=== PATIENT | female | born 1960 | race Asian ===

== ENCOUNTER → 2018-06-22 08:11 | Outpatient (CLI) | payer OTHER, SELFPAY ==
--- NOTE | 2018-06-22 08:14 | BI_ITS ---
MAMMOGRAPHY - BILATERAL SCREENING REASON FOR EXAM: Female, 57 years old. Routine annual screening examination. PERTINENT HISTORY: Non-contributory. TECHNIQUE: Digital bilateral breast amol (3D mammographic acquisition) in the CC and MLO projections. 2-D mediolateral oblique (MLO) and craniocaudad (CC) views of both breasts were obtained. CAD: Full Field Digital Mammography with Computer Added Detection was performed. COMPARISON: Comparison is made with prior outside examination dated September 20, 2016. FINDINGS: Breast Composition: There are scattered areas of fibroglandular density. There are no dominant masses or suspicious calcifications. No other significant abnormalities are identified. There has been no significant change since the prior study. BI/SCREENING MAMM (CAD), BILAT IMPRESSION: Stable bilateral screening mammogram. Yearly follow-up mammogram recommended. (A) ASSESSMENT CATEGORY: BIRADS Category 1: Negative. A letter regarding these results will be sent to the patient by the facility within 30 days. Approximately 10% of breast cancers are not detected by mammography. A normal mammogram should not delay biopsy of a clinically suspicious abnormality. [id number] Electronically Signed: Prieto Martin MD at 12:57 EDT Tel [phone], Service support ,
== END ==
PROVIDERS: Family Provider Internal Medicine; PCP Internal Medicine; Visit Provider Internal Medicine
DX: Z12.31 Encounter for screening mammogram for malignant neoplasm of breast (principal)
CPT/HCPCS: 77063; 77067

== ENCOUNTER → 2018-09-10 18:51 | Outpatient (CLI) | payer OTHER, SELFPAY ==
[2018-09-10 09:54] VITALS: BMI 26.2
[2018-09-13 15:48] LABS: HPV APTIMA, High Risk Negative (Negative)
== END ==
PROVIDERS: Family Provider Internal Medicine; PCP Internal Medicine; Referring Provider Nurse Practitioner Women's Health; Visit Provider Nurse Practitioner Women's Health
DX: Z12.4 Encounter for screening for malignant neoplasm of cervix (principal)
CPT/HCPCS: 87624; 88175; G0145

== ENCOUNTER → 2021-05-13 09:47 | Outpatient (CLI) | payer OTHER, SELFPAY ==
--- NOTE | 2021-05-13 09:50 | RAD_ITS ---
STUDY: X-RAY - LEFT WRIST REASON FOR EXAM: Female, 60 years old. fall, left wrist pain TECHNIQUE: 3 view(s) of the wrist were obtained. COMPARISON: None. FINDINGS: Normal visualized distal radius and ulna. Normal radiocarpal articulation. Normal distal radioulnar articulation. Normal carpal bones. Normal carpal articulations. There is degenerative arthrosis of the carpometacarpal articulation of the thumb. Normal second through fifth carpometacarpal articulations. Normal visualized metacarpal bones. The soft tissue structures are unremarkable. RAD/Wrist min 3 Views IMPRESSION: No demonstrated fracture. Electronically Signed: Carlos Whyte MD ([facility]) at 15:21 EDT , Service support ,
== END ==
PROVIDERS: PCP Internal Medicine; Referring Provider Physician Assistant; Visit Provider Physician Assistant
DX: M25.532 Pain in left wrist (principal)
CPT/HCPCS: 73110

== ENCOUNTER → 2023-09-13 | Outpatient (CLI) | payer OTHER, SELFPAY ==
--- NOTE | 2023-09-13 16:32 | STRESSREP ---
Stress Test Report Exercise stress test. 63-year-old lady with a history of chest pain Stress protocol: Resting EKG demonstrates normal sinus rhythm with a rate of 69 bpm resting blood pressure is 142/84 mmHg. The patient exercised according to the regular [facility]ino protocol for a total duration of 6 minutes attaining a maximum heart rate of 157 bpm which was 100% of maximum predicted heart rate; the maximum workload was 7 metabolic equivalents. At rest there were no ST or T wave changes noted to suggest ischemia and at peak exercise upsloping ST changes only were noted which did not meet the criteria for ischemia. No clinical angina was noted the test was terminated due to the target heart rate being achieved/fatigue. The peak blood pressure was 198/110 mmHg. Rate-pressure product was 30,700. Conclusion: Stress test with no EKG criteria for ischemia No clinical angina noted
== END | disposition home or self-care (01) ==
LOC: CVS 09:55
PROVIDERS: PCP Internal Medicine; Referring Provider Nurse Practitioner; Visit Provider Nurse Practitioner
DX: R07.9 Chest pain, unspecified (principal)
CPT/HCPCS: 93017

== ENCOUNTER → 2024-06-10 | Outpatient (CLI) | payer OTHER, SELFPAY ==
[2024-06-10 15:47] LABS: Absolute Lymphocyte Count 1.64 X10^3/uL (0.83-4.51); Absolute Neutrophil Count 3.1 X10^3/uL (2.0-7.7); Basophil# 0.14 X10^3/uL; Basophil% 2.5 % (0-1); Eosinophil# 0.39 X10^3/uL; Eosinophils% 6.9 % (0-5); Hematocrit 49.9 % (37-47); Hemoglobin 15.9 g/dL (12.0-15.0); Lymphocyte # 1.64 X10^3/ul (0.83-4.51); Mean Corp Hgb Conc 31.9 g/dL (32-36); Mean Corpuscular Hgb 26.3 pg (27.0-32.0); Mean Corpuscular Volume 82.6 fL (81-99); Mean Platelet Vol. 9.5 fl (6.2-12.0); Monocyte# 0.37 X10^3/uL; Monocyte% 6.5 % (0-10); NRBC Flagged by Analyzer 0 % (0-5); Neutrophil # 3.09 X10^3/uL (2.7-7.7); Neutrophil % 54.7 % (47-70); Platelet Count 249 K/mm3 (150-450); RBC Distribution Width CV 12.9 % (11.6-14.6); RBC Distribution Width SD 38.5 fl (35.1-43.9); Red Blood Count 6.04 M/mm3 (4.2-5.4); White Blood Count 5.7 K/mm3 (4.4-11.0)
[2024-06-10 17:04] LABS: ALB/GLOB Ratio 0.9 RATIO (0.9-2.4); AST(SGOT) 18 U/L (15-37); Alanine Aminotransfer ALT/SGPT 21 U/L (13-56); Albumin, Serum 3.5 g/dL (3.2-5.0); Alkaline Phosphatase 96 U/L (45-117); Anion Gap 9 (5-15); BUN 14 mg/dL (7-18); BUN/Creat Ratio 19.7 RATIO (10-20); Calcium,Total 9.1 mg/dL (8.5-10.1); Chloride 107 mmol/L (98-107); Cholesterol 244 mg/dL (200); Creatinine, Serum 0.71 mg/dL (0.55-1.02); EST Glomerular Filtration Rate 88 mL/min (>60); Est Glom Filt Rate - Afr Amer 106 mL/min (>60); Glucose 103 mg/dL (74-106); High Density Lipoprotein 72 mg/dL; Potassium 3.9 mmol/L (3.5-5.1); Protein, Total 7.5 g/dL (6.4-8.2); Sodium Level 138 mmol/L (136-145); T4 Free Direct 1.04 ng/dL (0.76-1.46); Thyroid Stim Hormone (TSH) 0.743 uIU/mL (0.358-3.740); Triglycerides 284 mg/dL; Very Low Density Lipoprotein 57 mg/dL (5-40)
[2024-06-16 16:07] LABS: T3 Reverse 20.5 ng/dL (9.2-24.1)
== END | disposition home or self-care (01) ==
LOC: BIMLAB 14:13
PROVIDERS: PCP Internal Medicine; Referring Provider Internal Medicine; Visit Provider Internal Medicine
DX: Z00.00 Encounter for general adult medical examination without abnormal findings (principal); E04.9 Nontoxic goiter, unspecified
CPT/HCPCS: 36415; 80053; 80061; 84439; 84443; 84482; 85025

== ENCOUNTER → 2024-06-21 | Outpatient (CLI) | payer OTHER, SELFPAY ==
--- NOTE | 2024-06-21 07:55 | US_ITS ---
EXAM: US SOFT TISSUES HEAD AND NECK, THYROID CLINICAL INDICATION: Goiter TECHNIQUE: Greyscale and color doppler imaging was performed of the thyroid gland. COMPARISON: No relevant prior studies available. FINDINGS: LEFT THYROID LOBE: The left thyroid lobe measures 3.8 x 3.4 x 3.7 cm. There is a 3.3 cm left upper pole thyroid nodule. This nodule is solid or almost completely solid, hyperechoic or isoechoic, [id number], smoothly marginated and contains no echogenic foci. TI-RADS points: 3. TI-RADS category: TR3. This nodule is mildly suspicious. Recommend FNA evaluation. There is a 2.7 cm left upper pole thyroid nodule. This nodule is solid or almost completely solid, hyperechoic or isoechoic, [id number], smoothly marginated and contains no echogenic foci. TI-RADS points: 3. TI-RADS category: TR3. This nodule is mildly suspicious. Recommend FNA evaluation. There is a 2.1 cm left mid thyroid nodule. This nodule is solid or almost completely solid, hyperechoic or isoechoic, [id number], ill-defined and contains no echogenic foci. TI-RADS points: 3. TI-RADS category: TR3. This nodule is mildly suspicious. Recommend follow-up thyroid ultrasounds at 1, 3 and 5 years. There is a 4.1 cm left inferior thyroid nodule. This nodule is solid or almost completely solid, hyperechoic or isoechoic, [id number], smoothly marginated and contains no echogenic foci. TI-RADS points: 3. TI-RADS category: TR3. This nodule is mildly suspicious. Recommend FNA evaluation. RIGHT THYROID LOBE: The right thyroid lobe measures 5.8 x 2.4 x 2.4 cm. There is a 3.3 cm nodule within the mid right thyroid lobe. This nodule is solid or almost completely solid, hyperechoic or isoechoic, [id number], smoothly marginated and contains no echogenic foci. TI-RADS points: 3. TI-RADS category: TR3. This nodule is mildly suspicious. Recommend FNA evaluation. There is a 2.0 cm nodule in the inferior to mid right thyroid lobe. This nodule is solid or almost completely solid, hyperechoic or isoechoic, hvuci-[id number], smoothly marginated and contains no echogenic foci. TI-RADS points: 3. TI-RADS category: TR3. This nodule is mildly suspicious. Recommend follow-up thyroid ultrasounds at 1, 3 and 5 years. There is a 0.8 cm nodule within the inferior right thyroid lobe. This nodule is solid or almost completely solid, hypoechoic, [id number], ill-defined and is peripherally calcified. TI-RADS points: 6. TI-RADS category: TR4. This nodule is moderately suspicious but no FNA or follow-up is necessary given the small size of this nodule. ISTHMUS: The thyroid isthmus measures 0.5 cm. No thyroid nodules are present. US/Thyroid IMPRESSION: Multinodular thyroid goiter. As above, some of the nodules should be evaluated with FNA and if definitive management is not performed, follow-up ultrasound should be performed at 1, 3, and 5 years. Electronically Signed: Van Neal DO at 23:01 EDT ,
--- NOTE | 2024-06-21 07:55 | BI_ITS ---
MAMMOGRAPHY - BILATERAL SCREENING REASON FOR EXAM: Female, 63 years old. Routine annual screening examination. PERTINENT HISTORY: Non-contributory. TECHNIQUE: Digital bilateral breast brigido (3D mammographic acquisition) in the CC and MLO projections. 2-D mediolateral oblique (MLO) and craniocaudad (CC) views of both breasts were obtained. CAD: Full Field Digital Mammography with Computer Added Detection was performed. COMPARISON: Comparison is made with prior study June 22, 2018. FINDINGS: Breast Composition: There are scattered areas of fibroglandular density. There are no dominant masses or suspicious calcifications. No other significant abnormalities are identified. There has been no significant change since the prior study. BI/SCRN MAMM (CAD)W/BRIGIDO BILAT IMPRESSION: Stable bilateral screening mammogram. Yearly follow-up mammogram recommended. (A) ASSESSMENT CATEGORY: BIRADS Category 1: Negative. A letter regarding these results will be sent to the patient by the facility within 30 days. Approximately 10% of breast cancers are not detected by mammography. A normal mammogram should not delay biopsy of a clinically suspicious abnormality. [id number] Electronically Signed: Prieto Martin MD at 9:29 EDT ,
== END | disposition home or self-care (01) ==
PROVIDERS: PCP Internal Medicine; Referring Provider Internal Medicine; Visit Provider Internal Medicine
DX: Z12.31 Encounter for screening mammogram for malignant neoplasm of breast (principal); E04.9 Nontoxic goiter, unspecified
CPT/HCPCS: 76536; 77063; 77067

== ENCOUNTER → 2024-07-01 | Outpatient (CLI) | payer OTHER, SELFPAY ==
--- NOTE | 2024-07-01 09:12 | BI_ITS ---
MAMMOGRAPHY - UNILATERAL DIAGNOSTIC: LEFT BREAST REASON FOR EXAM: Female, 63 years old. Abnormal screening mammogram. PERTINENT HISTORY: Non-contributory. TECHNIQUE: Compression spot views of the upper-outer quadrant of the left breast were obtained. CAD: Full Field Digital Mammography with Computer Added Detection was performed. COMPARISON: Comparison is made with prior study dated June 21, 2024. FINDINGS: Breast Composition: There are scattered areas of fibroglandular density. Persistent focal area of the architectural distortion the upper lateral aspect of the left breast. Correlation with ultrasound recommended. No other significant abnormalities are identified. BI/DIAG MAMM W/CAD, UNILAT IMPRESSION: Persistent focal area of architectural distortion in the upper lateral aspect of the left breast. Correlation with ultrasound recommended. ASSESSMENT CATEGORY: BIRADS Category 0: Incomplete. Need additional imaging evaluation. A letter regarding these results will be sent to the patient by the facility within 30 days. Approximately 10% of breast cancers are not detected by mammography. A normal mammogram should not delay biopsy of a clinically suspicious abnormality. Electronically Signed: Prieto Martin MD at 10:32 EDT ,
--- NOTE | 2024-07-01 09:16 | US_ITS ---
STUDY: ULTRASOUND BREAST - LEFT REASON FOR EXAM: Female, 63 years old. Abnormal screening mammogram. TECHNIQUE: Axial and longitudinal images of the LEFT breast were performed with a high resolution ultrasound transducer. # OF IMAGES: [id number] COMPARISON: Comparison is made with prior mammogram dated June 21, 2024 and July 01, 2024. FINDINGS: LEFT Breast: The mammographic abnormality corresponds to a 5 mm x 7 mm x 5 mm hypoechoic irregular nodule at the 2:00 position of the breast at 8 cm from the nipple. Biopsy recommended. US/Breast Limited Unilateral IMPRESSION: 5 mm x 7 mm x 5 mm hypoechoic irregular nodule at the 2:00 position of the breast at 8 cm from the nipple. Biopsy recommended. ASSESSMENT CATEGORY: BIRADS Category 4: Suspicious - Biopsy Should Be Considered. A letter regarding these results will be sent to the patient by the facility within 30 days. Electronically Signed: Prieto Martin MD at 15:15 EDT ,
--- OUTSIDE RECORDS SUMMARY | 2024-07-01 09:46 | XMS RPT_ITS | CCD ---
Author Organization [facility] Care Team Providers Care Machine Maintenance Supervisor Name Role Phone ARPITA WELCH Unavailable Unavailable NO REFERRING Unavailable Unavailable SIMONE HOLLAND Unavailable Unavailable PATT BUI Unavailable Unavailable PATT WATTERS Unavailable Unavailable Allergies Allergy Classification Reported Allergen(s) Allergy Type Date of Onset Reaction(s) Facility (2 sources) Seasonal allergy; Translations: [SEASONAL ALLERGIES] Propensity to adverse reactions (disorder) 5 [facility] Repository Problems Active Problems Problem Classification Problem Date Documented Da te Episodic/Chronic Unclassified (1 source) Unknown / UNK(Unknown) Onset: 06-18-2017 Unclassified (3 sources) Other specified disorders of teeth and supporting structures; Translations: [OTH SPEC DISORDERS TEETH] Onset: 05-12-2017 Unclassified (1 source) Pain due to other internal prosthetic devices, implants and grafts, subsequent encounter; Translations: [Pain due to other internal prosthetic devices, implants and grafts, subsequent encounter] Onset: 06-18-2017 Past or Other Problems Problem Classification Problem Date Documented Da te Episodic/Chronic Contraceptive and procreative management (1 source) Tubal ligation status; Translations: [TUBAL LIGATION STATUS] Onset: 05-12-2017 Episodic Disorders of teeth and jaw (2 sources) Periapical abscess without sinus; Translations: [Dental caries, unspecified] Onset: 05-12-2017 Episodic Screening or history of mental health and substance abuse (1 source) Personal history of nicotine dependence; Translations: [PERSONAL HISTORY OF JYOTI] Onset: 05-12-2017 Episodic Unclassified (1 source) Other specified disorders of teeth and supporting structures Onset: 06-18-2017 Results Test Name Value Interpretation Reference Range Facility PROGRESSon 11-01-2019 PROGRESS HNO ID: [id number] Author: Bailey Harrison Service: ? Author Type: Bottle Label Inspector Type: Progress Notes Filed: 11/01/2019 2:04 PM Note Text: POPULATION HEALTH HUMAN RESOURCE ADVISER QUICKNOTE Provider Action/FYI: I spoke with daughter, Mahsa, and she's unsure if Dr. Hernandez is Otoniels PCP or not. She will discuss and call us back to schedule an appointment Patient identified by name and . Bailey Harrison CMA [facility] CNPTOUTREACHon 10-31-2019 [facility] Outreach (IN TMWS) OTONIEL MARION ([id number]) 1960 F Date Time Provider Department 10/31/19 BAILEY HARRISON CMA INTMWS During your visit today, we recorded the following information about you: Bailey Harrison CMA 11/01/2019 2:04 PM Signed PHMA TEAMLET DOCUMENTATION Provider Action/FYI: PSR Action/FYI: Last patient activity 10/16/2017 Last PCP visit 10/06/2015 I will call patient to verify PCP/schedule re-establish care appointment (if patient agreeable). Health Maintenance Due: HIV SCREENING due on 1977 SHINGRIX VACCINE(1 of 2) due on 2009 MAMMOGRAM due on 08/21/2015 DIABETES SCREEN due on 08/15/2017 INFLUENZA(1) due on 05/05/2019 HPV TESTING due on 10/23/2019 Teamlet has identified patient by name and date of . Team: Dr. Mary Jerry ? Last Office Visit:Visit date not found ? Next Office Visit: Visit date not found ? Last BP/Labs: Blood Pressure: Last 3 Encounter BP Readings: Date: BP: 09/22/2017 120/88 09/03/2017 142/94 06/18/2017 154/104 Lipids: Cholesterol, Total (mg/dL) Date Value 03/14/2015 212 08/15/2014 230 HDL Cholesterol (mg/dL) Date Value 03/14/2015 61 08/15/2014 57 LDL Cholesterol (mg/dL) Date Value 03/14/2015 131 08/15/2014 146 Triglyceride (mg/dL) Date Value 03/14/2015 102 08/15/2014 135 HGB A1C: No results found for: HBA1C TSH: TSH (uU/mL) Date Value 08/15/2014 1.380 ) Care Gap: Hyperlipdemia Due for physical with PCP Plan: ? Confirm PCP / Status- unknown ? Type of appointment needed: verify pcp/physical ? Consultation Appointments: n/a Labs, HM and Immunization: Health Maintenance Due: HIV SCREENING due on 1977 SHINGRIX VACCINE(1 of 2) due on 2009 MAMMOGRAM due on 08/21/2015 DIABETES SCREEN due on 08/15/2017 INFLUENZA(1) due on 05/05/2019 HPV TESTING due on 10/23/2019 IRWIN Ewing, [facility] 11/01/2019 2:04 PM Signed [facility] HUMAN RESOURCE ADVISER DIANA Provider Action/FYI: 1st attempt - [employer] message sent. Patient identified by name and . IRWIN Ewing CMA 11/01/2019 2:04 PM Signed [facility] HUMAN RESOURCE ADVISER DIANA Provider Action/FYI: I spoke with daughter, Mahsa, and she's unsure if Dr. Hernandez is Bouasys PCP or not. She will discuss and call us back to schedule an appointment Patient identified by name and . Bailey Harrison CMA Allergies As of Date: 10/31/2019 Noted Allergy Reaction SEASONAL ALLERGIES 09/18/2014 14 - Other: See Comments Comments: sneezing and watery eyes Trees and grasses verified by skin testing Date Reviewed: 09/22/2017 Reviewed by: Sandhya Busby [facility] - Fully Assessed Reason for Visit: PHMA/Care Gap Outreach [[id number]] Prescriptions as of 10/31/2019 Sig: BENZONATATE 100 MG CAPSULE Take 1-2 capsules by mouth th* IPRATROPIUM BROMIDE 0.03 % NA* Use 2 Sprays in each nostril * Problem List As Of Date 10/31/2019 Noted Resolved Multinodular thyroid [E04.2] 08/01/2014 More... Hyperlipidemia [E78.5] 09/18/2014 More... Degenerative arthritis of thumb [M18.10] 11/20/2014 More... Encounter Status:Closed by BAILEY HARRISON CMA on 11/01/19 [facility] PROGRESSon 10-31-2019 PROGRESS HNO ID: [id number] Author: Bailey Harrison Service: ? Author Type: Bottle Label Inspector Type: Progress Notes Filed: 11/01/2019 2:04 PM Note Text: POPULATION HEALTH HUMAN RESOURCE ADVISER QUICKNOTE Provider Action/FYI: 1st attempt - [employer] message sent. Patient identified by name and . Bailey Harrison CMA [facility] PROGRESS HNO ID: [id number] Author: Bailey Irwin Harrison Service: ? Author Type: Bottle Label Inspector Type: Progress Notes Filed: 11/01/2019 2:04 PM Note Text: PHMA TEAMLET DOCUMENTATION Provider Action/FYI: PSR Action/FYI: Last patient activity 10/16/2017 Last PCP visit 10/06/2015 I will call patient to verify PCP/schedule re-establish care appointment (if patient agreeable). Health Maintenance Due: HIV SCREENING due on 1977 SHINGRIX VACCINE(1 of 2) due on 2009 MAMMOGRAM due on 08/21/2015 DIABETES SCREEN due on 08/15/2017 INFLUENZA(1) due on 05/05/2019 HPV TESTING due on 10/23/2019 Teamlet has identified patient by name and date of . Team: Dr. Mary Jerry ? Last Office Visit:Visit date not found ? Next Office Visit: Visit date not found ? Last BP/Labs: Blood Pressure: Last 3 Encounter BP Readings: Date: BP: 09/22/2017 120/88 09/03/2017 142/94 06/18/2017 154/104 Lipids: Cholesterol, Total (mg/dL) Date Value 03/14/2015 212 08/15/2014 230 HDL Cholesterol (mg/dL) Date Value 03/14/2015 61 08/15/2014 57 LDL Cholesterol (mg/dL) Date Value 03/14/2015 131 08/15/2014 146 Triglyceride (mg/dL) Date Value 03/14/2015 102 08/15/2014 135 HGB A1C: No results found for: HBA1C TSH: TSH (uU/mL) Date Value 08/15/2014 1.380 ) Care Gap: Hyperlipdemia Due for physical with PCP Plan: ? Confirm PCP / Status- unknown ? Type of appointment needed: verify pcp/physical ? Consultation Appointments: n/a Labs, HM and Immunization: Health Maintenance Due: HIV SCREENING due on 1977 SHINGRIX VACCINE(1 of 2) due on 2009 MAMMOGRAM due on 08/21/2015 DIABETES SCREEN due on 08/15/2017 INFLUENZA(1) due on 05/05/2019 HPV TESTING due on 10/23/2019 Bailey Harrison CMA [facility] ED NOTEon 06-18-2017 ED NOTE HNO ID: [id number] thor: Courtney CormierRn) DELANEY Vasquezervice: Emergency MedicineAuthor Type: Registered NurseType: ED NotesFiled: 06/18/2017 11:59 AMNote Text:Patient discharged to home. Patient verbalized understanding of dischargeinstructions, no voiced questions or concerns. Patient leaving in nodistress. Safety maintained. Patient states they are leaving the ED withall the belongings they came with. [facility] ED NOTE HNO ID: [id number] thor: Courtney Crews) DELANEY Vasquezervice: Emergency MedicineAuthor Type: Registered NurseType: ED NotesFiled: 06/18/2017 11:14 AMNote Text: Pt awake and alert, x3. C/o tooth pain. No bleeding from area. Statespain is keeping her awake at night, having trouble sleeping and eating dueto pain. [facility] ED NOTE HNO ID: [id number] thor: Rosi CormierRn) Pastor RNService: Emergency MedicineAuthor Type: Registered NurseType: ED NotesFiled: 06/18/2017 10:25 AMNote Text:Patient returns here again for tooth pain, has had antibiotics from [facility], as well as a round from the dentist for tooth. Patient still havingpain in tooth, needs to schedule root canal but hasn't done so yet.Patient asking for pain medicine today. [facility] ED PROV NOTEon 06-18-2017 ED PROV NOTE HNO ID: [id number] thor: Tyrell Cooperice: Emergency MedicineAuthor Type: PhysicianType: ED Provider NotesFiled: 06/18/2017 5:21 PMNote Text:ED Provider NotePatient Name: Otoniel MarionMRN: [id number] DATE: 06/18/17HistoryPatient presents with:Dental ProblemHPI Comments: Patient presents to the emergency department with dentalpain. Patient states that she has been having this dental pain on and offfor the past few weeks. Patient states that she has been to the emergencydepartment in the past for this pain and has gotten antibiotics. Patientstates that most recently this pain acted up about 3 days ago. Patientdenies any recent trauma, dental work.Denies recent fevers, chills, vomiting, history of diabetes. Patientstates that she saw her dentist and was told that she needs a root canalhowever she does not have that scheduled as she doesn't know if she wantsthe procedure.History provided by: PatientPAST MEDICAL HISTORYDiagnosis Date- Hyperlipidemia- Multiple thyroid nodulesPAST SURGICAL HISTORYProcedure Laterality Date- COLONOSCOP W/ OR W/O [facility] SPEC 10/26/15 Colonoscopy- F LIGATION TUBALFAMILY HISTORYProblem Relation Age of Onset- Cancer Mother lung- Kidney Disease Father- thyroid surgery [Other] [OTHER] Sister 2013.Social HistorySocial History Main Topics- Smoking status: Former Smoker Types: Cigarettes- Smokeless tobacco: Never Used Comment: 1 cigarette per day for 2 years, quit 3 years ago- Alcohol use Yes- Drug use: No- Sexual activity: Yes Partners: MaleALLERGIESAllergen Reactions- Seasonal Allergies Other: See Comments sneezing and watery eyesTrees and grasses verified by skin testingReview of SystemsConstitutional: Negative for appetite change, chills and fever.HENT: Negative for congestion, rhinorrhea and sore throat.Respiratory: Negative for cough, shortness of breath and wheezing.Cardiovascular: Negative for chest pain, palpitations and leg swelling.Gastrointestinal: Negative for abdominal pain, constipation, diarrhea,nausea and vomiting.Genitourinary: Negative for difficulty urinating, dysuria, flank pain andhematuria.Musculoskeletal : Negative for back pain, neck pain and neck stiffness.Skin: Negative for rash and wound.Neurological: Negative for seizures, syncope, weakness andlight-headedness.Physical ExamBP 154/104 Pulse 70 Temp (Src) 97.7 (Tympanic) Resp 16 Wt 145 lb(65.8kg) SpO2 97%Physical ExamConstitutional: She appears well-developed and well-nourished. Nodistress.HENT:Head: Normocephalic and atraumatic.Mouth/Throat: Oropharynx is clear and moist.#20, tenderness to palpation. No evidence of periapical abscess,submandibular abscess, John angina.Eyes: Conjunctivae and EOM are normal.Neck: Normal range of motion. Neck supple. No tracheal deviation present.Cardiovascular: Normal rate, regular rhythm and normal heart sounds. Examreveals no gallop and no friction rub.No murmur heard.Pulmonary/Chest: Effort normal and breath sounds normal. No stridor. Norespiratory distress. She has no wheezes. She has no rales.Abdominal: Soft. Bowel sounds are normal. She exhibits no distension.There is no tenderness. There is no rebound and no guarding.Musculoskeletal: Normal range of motion. She exhibits no edema, tendernessor deformity.Neurological: She is alert. No cranial nerve deficit.Skin: Skin is warm and dry. No rash noted.Nursing note and vitals reviewed.Diagnostic TestingED Labs Ordered and Reviewed - No data to displayProceduresMedical Decision Making / ED CourseED CourseNo evidence of abscess no evidence of ludgwig angina. Patient given aprescription for penicillin. Patient was instructed that she needs tofollow-up with her primary care physician as she can't keep returning [facility] emergency department for pain medications.Encounter Diagnosis ICD-10-CM1. Pain, dental K08.89PlanThe Patient was DISCHARGED: Counseled patient regarding suspecteddiagnosis AND need for follow-up. Discharged home with verbal and writteninstructions. They were instructed to return as needed for persistent orworsening symptoms or any new concerns.Condition at time of disposition: stableSIGNATURE: Azar Cooper, DO06/18/17 1721 [facility] Encounters Encounter Date Encounter Type Care Provider Facility Start: 06-18-2017 End: 06-18-2017 Emergency department patient visit PATT BUI Facility:[facility] Start: 05-12-2017 End: 05-12-2017 Ambulatory PATT WATTERS [facility] Start: 05-12-2017 End: 05-12-2017 Emergency department [facility] Facility:[facility] Payers Date Payer Category Payer Policy ID Unknown [id number] Summary Purpose Family History No Family History Records FoundNo Family History Records FoundNo Family History Records Found Advance Directives No Advanced Directives Records FoundNo Advanced Directives Records FoundNo Advanced Directives Records Found Additional Source Comments INFORMATION SOURCE (unrecogn ized section and content) DATE CREATED AUTHOR 02/27/2018 [facility] DATE CREATED AUTHOR AUTHOR'S ORGANIZ ATION 02/27/2018 [facility] DATE CREATED AUTHOR AUTHOR'S ORGANIZ ATION 09/26/2020 [facility] FOR RECORDS PERTAINING TO PATIENTS WHO ARE OR HAVE BEEN ENROLLED IN A CHEMICAL DEPENDENCY/SUBSTANCEABUSE PROGRAM, SOME INFORMATION MAY BE OMITTED. This clinical summary was aggregated from multiple sources. Caution should be exercised in using it in the provision of clinical care. This summary normalizes information from multiple sources, and as a consequence, information in this document may materially change the coding, format and clinical context of patient data. In addition, data may be omitted in some cases. CLINICAL DECISIONS SHOULD BE BASED ON THE PRIMARY CLINICAL RECORDS. [facility]. provides no warranty or guarantee of the accuracy or completeness of information in this document.
== END | disposition home or self-care (01) ==
PROVIDERS: PCP Internal Medicine; Referring Provider Internal Medicine; Visit Provider Internal Medicine
DX: R92.8 Other abnormal and inconclusive findings on diagnostic imaging of breast (principal)
CPT/HCPCS: 76642; 77065

== ENCOUNTER 2024-07-09 11:53 | Outpatient (CLI) | payer OTHER, SELFPAY ==
--- NOTE | 2024-07-09 | BRBX_PTH ---
PATIENT: OTONIEL ARZOLA LOC: [facility] U#:[id number] AGE/SX: 63/F ROOM: RE07/09/[address]: Dr. Marcia David MD : 1960 BED: DIS: 07/09/2024 SPEC #: [id number] RECD: 07/09/24 13:23 STATUS: BENITO REFelipa #: [id number] SEAN: 07/09/24 00:[address]: Marcia David DEPT: SURGICAL PATHOLOGY RECD BY: Ct Chairez ENTERED: 07/09/24 13:41 SP TYPE: BREAST BX OT DR: Dr. 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 See cancer summary in the comment section. 07/10/2024 COMMENT INVASIVE BREAST CANCER SUMMARY: Procedure: Needle core biopsy Specimen Laterality: Left Tumor site: 2o'clock, 8cm from nipple Histologic type: Invasive ductal carcinoma, not otherwise specified Provisional Histologic grade: Glandular/tubule Differentiation Score: 2 Nuclear Pleomorphism Score: 2 Mitotic Rate Score: 1 Overall grade: Grade 1 (score of 5) Tumor Size (greatest dimension): 0.4cm in greatest length Ductal Carcinoma in situ: Present Architectural Pattern: Solid and cribriform Nuclear Grade: Grade 2 (intermediate) Necrosis: Not identified Angiolymphatic Invasion: Microcalcifications: Not identified Additional Findings: None Breast Marker Study: [id number] ER: positive (>95%, strong intensity) NM: positive (77%, weak to moderate intensity) Her2: Equivocal (2+) Ki67: positive, low ~7% [id number]: pending. The above summary is in compliance with College of [place] Path[employer] (CAP) Cancer Protocols Checklist and [place] Joint Committee on Cancer (AJCC), Staging Manual, 8th Ed. MICROSCOPIC DESCRIPTION Slides are reviewed. GROSS DESCRIPTION Received in fixative is one container labeled with the patient's name and designated Left breast 2o'clock. 8cm from nipple. The specimen consists of multiple elongated fragments of naranjo-yellow fibroadipose tissue that in aggregate measure 2.0 x 0.5 x 0.1 cm. The specimen is totally submitted in one cassette. 07/09/2024 TC:0 CPT:71393
--- NOTE | 2024-07-09 | IMM_PTH ---
PATIENT: OTONIEL ARZOLA LOC: [facility] U#:[id number] AGE/SX: 63/F ROOM: RE07/09/[address]: Dr. Marcia David MD : 1960 BED: DIS: 07/09/2024 SPEC #: [id number] RECD: 07/10/24 13:24 STATUS: BENITO REQ #: [id number] SAEN: 07/09/24 00:[address]: Marcia David DEPT: IMMUNOHISTOCHEMISTRY RECD BY: Dank Chung ENTERED: 07/10/24 13:25 SP TYPE: IMMUNO OTHR DR: Dr. David Cavanaugh MD Tissues: Left breast, NOS Procedures: E-CAD (initial) CALPONIN-1 (add) CK5-6 (add) CK8 (add) HER2 SULLY (add) KI-67 (add) P53 (add) RI (add) P40 (add) ER (initial) PHYSICIAN & [address] [address] SPECIMEN INFORMATION: Tissue Source: Left breast Clinical Info: BIRAD 4 Specimen Number: [id number] CPT code: 16308,[id number] METHODOLOGY: Deparaffinized sections of prefer/formalin-fixed tissue or PAP/DQ stained slides are incubated with monoclonal/polyclonal antibodies/oligonucleotide probes. Localization is made via biotin free immunoperoxidase method. Appropriate controls are performed and reacted as expected. Results on target cell population are indicated in the following table: RESULTS: ANTIBODY / CLONE RESULT E-Cad (ECH-6) positive CK8 (41vfhiP86) positive Calponin-1 (WL384U) negative * CK5-6 (D5 & 1684) negative * P40 (BC28) negative * P53 (DO-7) negative, null pattern Ki-67 (30-9) positive, low, 7% * Positive in myoepithelial cells in ductal carcinoma in situ MORPHOMETRIC ANALYSIS ER (clone 6F11) > 95%, strong intensity RI (clone 16/1E2) 77%, weak to moderate intensity Her-2Neu (clone CB11) 2+ The prognostic test for HER2 is performed on formalin-fixed paraffin embedded tissue. A 3+ (positive) staining pattern is defined as intense, homogeneous, complete, circumferential membranous staining in >10% of contiguous tumor cells. A similar weak (2+) staining pattern is interpreted as equivocal. FRANKO follow-up testing is recommended for all equivocal cases. Positivity/negativity for ER/RI is reported if > or < 1% of the tumor cells are immuno- reactive, respectively. The ASCO/CAP criteria is used for scoring. Reference: Journal of Clinical Oncology, 2013; 31:3605-8878 & 2010; 16:8998-7701. Ischemic time: Less than one hour. Duration of fixation: 8 Hrs; Sample Adequate: Yes. These assays have not been validated on decalcified tissues. Results should be interpreted with caution given the likelihood of false negativity on decalcified specimens or fixation greater than 72 hours. Alternative testing methods (FISH/dualISH for Her2; gene expression for ER) are recommended, if applicable. Please notify the laboratory if additional testing is required. These tests were developed and their performance characteristics determined by [facility]. They may not have been cleared or approved by the U.S. Food and Drug Administration. The FDA has determined that such clearance or approval is not necessary. The above immunohistochemical/dualISH markers are ordered and reviewed by the Pathologist. 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 Positive for estrogen receptors (favorable prognostic indicator). Positive for progesterone receptors (favorable prognostic indicator). Equivocal for overexpression of KGZ5vhpneu. Tucker 07/11/2024 ADDENDUM ADDENDUM ADDENDUM ADDENDUM ADDENDUM ADDENDUM ADDENDUM ADDENDUM ADDENDUM ADDENDUM ADDENDUM ADDENDUM ADDENDUM ADDENDUM ADDENDUM ADDENDUM ADDENDUM ADDENDUM ADDENDUM ADDENDUM ADDENDUM 07/12/2024 13:40 ADDENDUM 07/12/2024 13:40 ADDENDUM 07/12/2024 13:40 ADDENDUM 07/12/2024 13:40 ADDENDUM 07/12/2024 13:40 IN SITU HYBRIDIZATION (FRANKO) FOR HER2 Interpretation: Negative/ Not Amplified HER2 : CEP-17 Ratio: 1.0 Average HER2 Signal: 2.1 Average CEP-17 Signal: 2.1 Number of Tumor Cells Scanned: 50 Interpretative Information: The INFORM HER2 Dual FRANKO DNA Probe Cocktail assay is performed on formalin-fixed paraffin embedded tissue and determines HER2 gene status by detecting HER2 copies via silver in situ hybridization (SISH) and Chromosome 17 copies via chromogenic red in situ hybridization on tumor cells. A minimum of 20 cells representing > 10% of contiguous and homogeneous invasive tumor cells were analyzed. HER2 gene status is classified as Non-amplified (HER2/Chr17 ratio < 2.0) or Amplified (HER2/Chr17 ratio greater than or equal to 2.0). If the resulting HER2/Chr17 ratio falls within 1.8 - 2.2 (Borderline), retesting by FISH is recommended. Reference: Lalito PELAEZ, Tracy RAYA, Aneta ASHER, et al: Recommendations for Human Epidermal Growth Factor Receptor 2 Testing in Breast Cancer: [place] Society of Clinical Oncology / College of [place] Pathologists Clinical Practice Guideline Update. J Clin Oncol 31:7253-1777, 2013.
--- NOTE | 2024-07-09 11:53 | US_ITS ---
STUDY: ULTRASOUND BREAST - LEFT REASON FOR EXAM: Female, 63 years old. Ultrasound-guided breast biopsy. TECHNIQUE: Axial and longitudinal images of the LEFT breast were performed with a high resolution ultrasound transducer. # OF IMAGES: 19 COMPARISON: Comparison is made with prior ultrasound of the breasts dated July 01, 2024. FINDINGS: LEFT Breast: The surgeon performed core biopsies of the 4 mm x 5 mm x 4 mm hypoechoic nodule with posterior shadowing at the 2:00 position breast at 8 cm from the nipple. US/US Breast Biopsy 1st Lesion IMPRESSION: Successful ultrasound-guided right breast biopsy. Electronically Signed: Prieto Martin MD at 15:09 EST ,
--- NOTE | 2024-07-09 13:04 | PCM.OPRPT ---
Operative Report (Standard) Operative Information Surgery/Procedure Performed: Ultrasound-guided left breast biopsy Surgeon: Marcia David Date of Procedure: 07/09/24 Procedure Start Time: 12:45 Procedure Stop Time: 12:55 Pre-Operative Diagnosis: Left breast mass Post-Operative Diagnosis: Same Select all DRAINS/GRAFTS/IMPLANTS that apply: None Type of Anesthesia: Local Estimated Blood Loss: < 10 cc Specimen collected: Yes Description of specimen(s) removed: Left breast mass 2:00 8 cm from the nipple Description of surgery: Procedure: Left ultrasound-guided core biopsy Indications: 63 year-old female with hypoechoic/irregular nodule at 2:00 in the left breast 8 centimeters from the nipple. Risk benefits were discussed the patient and she elected to proceed with ultrasound guided core biopsy with clip placement Description of procedure: Patient was brought into the ultrasound room in the left breast was marked. A timeout was completed verifying correct patient, procedure, site, specially, prior to beginning procedure. The left breast was prepped and draped in usual sterile fashion and using local anesthesia was obtained with 1% lidocaine with epi. The lesion was located with the ultrasound. Small incision was made with 11 blade to introduced the BARD MaxCore through the skin. Under ultrasound guidance multiple core samples were obtained using then 14-gauge BARD MaxCore and sent in formalin for pathology. The Bard dual ultra? coil clip was then deployed into the biopsy cavity under ultrasound guidance and a picture was taken. Upon completion procedure hemostasis was obtained and a Steri-Strip and OpSite were placed. Patient was then taken to the mammography suite for clip verification. The clip was verified. The patient tolerated the procedure well and was discharged from the breast imaging department good condition. Surgical Findings: Left breast mass 8:00 2 cm from nipple Reverse Unit Operator Fisherman underwriting service representative: No Complications Complications: No
== END 2024-07-09 23:59 | disposition home or self-care (01) ==
PROVIDERS: PCP Internal Medicine; Referring Provider Surgery; Visit Provider Surgery
DX: N63.20 Unspecified lump in the left breast, unspecified quadrant (principal); C50.912 Malignant neoplasm of unspecified site of left female breast
CPT/HCPCS: 19083; 88305; 88341; 88342

== ENCOUNTER 2024-07-26 06:57 | Day surgery (SDC) | payer OTHER, SELFPAY ==
[2024-07-26] VITALS (8 sets, daily range): BP systolic 149–188; BP diastolic 84–101; PULSE 67–93; RESP 16–20; TEMP 36.3–36.9; O2SAT 97–100; BMI 25.8
--- NOTE | 2024-07-26 | IMM_PTH ---
PATIENT: OTONIEL ARZOLA LOC: [facility] [place] U#:[id number] AGE/SX: 63/F ROOM: RE07/26/[address]: Dr. Marcia David MD : 1960 BED: DIS: 07/26/2024 SPEC #: [id number] RECD: 08/02/24 08:07 STATUS: BENITO REQ #: [id number] SEAN: 07/26/24 00:[address]: Marcia David DEPT: IMMUNOHISTOCHEMISTRY RECD BY: Dank Chung ENTERED: 08/02/24 08:08 SP TYPE: IMMUNO OTHR DR: Dr. David Cavanaugh MD Tissues: LYMPH NODE BIOPSY Procedures: CK8 (initial) Pankeratin (add) PHYSICIAN & INSTITUTION [place] [id number] SPECIMEN INFORMATION: Tissue Source: A- [place] lymph node Clinical Info: Invasive ductal carcinoma of left breast Specimen Number: [id number] CPT code: 73159,48164i8 METHODOLOGY: Deparaffinized sections of prefer/formalin-fixed tissue or PAP/DQ stained slides are incubated with monoclonal/polyclonal antibodies/oligonucleotide probes. Localization is made via biotin free immunoperoxidase method. Appropriate controls are performed and reacted as expected. Results on target cell population are indicated in the following table: RESULTS: ANTIBODY / CLONE RESULT Block A 1 CK8 ([id number]) negative AE1-3 (AE1/AE3/PCK26) negative Block A2 CK8 ([id number]) negative AE1-3 (AE1/AE3/PCK26) negative Block A3 CK8 ([id number]) negative AE1-3 (AE1/AE3/PCK26) negative Block A 4 CK8 ([id number]) negative AE1-3 (AE1/AE3/PCK26) negative These tests were developed and their performance characteristics determined by [facility]. They may not have been cleared or approved by the U.S. Food and Drug Administration. The FDA has determined that such clearance or approval is not necessary. The above immunohistochemical/dualISH markers are ordered and reviewed by the Pathologist. INTERPRETATION: A. [place] lymph node, ultrasound guided core biopsy: Three out of three lymph nodes, negative for carcinoma. 08/02/2024
--- NOTE | 2024-07-26 07:15 | PCM.PRE.AN2 ---
ASA Classification* ASA Classification ASA Classification: 2 Assessment & Plan Anesthesia* Anesthesia Assessment Anesthesia Assessment: Discussed sedation and/or anesthesia options, risks, benefits, and alternatives with patient/parents/legal guardian/POA. Questions invited. The patient/parents/legal guardian/POA seems to understand and agrees to proceed with anesthesia plan. Reviewed the physical assessment, medical history, allergy history and patient home medications list prior to surgery/procedure/anesthetic and documented any changes. Performed airway and anesthesia risk assessments. Anesthesia Type Anesthesia Type: MAC (Backup GA) Anesthesia Focused Assessment* Airway Assessment Mouth opens: >3 cm Mallampati Score: II Focused Labs Anesthesia Preop lab: CBC WBC 5.7 K/mm3 (4.4-11.0) 06/10/24 14:13 RBC 6.04 M/mm3 (4.2-5.4) H 06/10/24 14:13 Hgb 15.9 g/dL (12.0-15.0) H 06/10/24 14:13 Hct 49.9 % (37-47) H 06/10/24 14:13 Plt Count 249 K/mm3 (150-450) 06/10/24 14:13 CHEMISTRY Potassium 3.9 mmol/L (3.5-5.1) 06/10/24 14:13 Sodium 138 mmol/L (136-145) 06/10/24 14:13 BUN 14 mg/dL (7-18) 06/10/24 14:13 Creatinine 0.71 mg/dL (0.55-1.02) 06/10/24 14:13 Glucose 103 mg/dL (74-106) 06/10/24 14:13 TSH 0.743 uIU/mL (0.358-3.740) 06/10/24 14:13 COAG Pre-Assessment Diagnosis/Proposed Procedure Planned Operative Procedure(s): U/S GUIDED WIRE LOCALIZATION LEFT BREAST LUMPECTOMY WITH SENTINAL LYMPH NODE BIOSPY,BLUE DYE RADIOTRACER POSS AXILLARY DISSECTION Anesthesia History 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 When Was Last Pacemaker Check QUESTION #4 FULL TEXT: You/Your Family Experience fever (hyperthermia) with Anesthesia Last Oral Intake Last Oral intake: Last Oral Intake NPO since Meds taken in AM with sips of water? 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: PONV - camp dining room attendant Female Yes 07/24/24 15:05 HX of Motion Sickness No 07/24/24 15:05 HX of N/V After Surgery No 07/24/24 15:05 Non-Smoker Yes 07/24/24 15:05 Duration of Surgery greater Yes 07/24/24 15:05 than 60 minutes Number of Risk Factors 3 07/24/24 15:05 PONV Score Moderate Risk 07/24/24 15:05 Height & Weight Height & Weight: Anesthesia: Height & Weight Height 5 ft 3 in 07/22/24 11:06 Respiratory Assessment Respiratory Assessment - camp dining room attendant: Respiratory Tract Infection Hx - camp dining room attendant Hx Respiratory Tract Infection No 07/24/24 15:05 STOP Sleep Apnea STOP Sleep Apnea - camp dining room attendant: STOP Sleep Apnea - camp dining room attendant Hx Hypertension No 07/24/24 15:05 Hx Sleep Apnea No 07/24/24 15:05 CPAP BIPAP Do you snore loudly (louder Yes 07/24/24 15:05 than talking or can be heard Do you often feel tired/ No 07/24/24 15:05 fatigued/ sleepy during daytime? Has anyone observed you stop No 07/24/24 15:05 breathing during sleep? STOP Results Negative 07/24/24 15:05 QUESTION #5 FULL TEXT : Do you snore loudly (louder than talking or can be heard through closed doors)? 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 Specify any problems Hx of Preganancy in last 3 No 07/24/24 15:05 Months Nurse Filling Out Transfusion DSCHRIBER 07/24/24 15:05 & Questions: Date: 07/24/24 07/24/24 15:05 Time: 15:06 07/24/24 15:05 Patient unable to answer at this time (ie. confused, unrespo /Reproduction History /Reproductive History - camp dining room attendant: /Reproductive Hx- camp dining room attendant Hx Now No 07/24/24 15:05 Gestational Age (in weeks): EDC: Hx Hx Para Hx Section SAB No 07/24/24 15:05 Active Medications Active Medications: Current Medications Generic Name Dose Route Start Last Admin Trade Name Freq PRN Reason Stop Dose Admin Cefazolin Sodium 2 gm/ N/A 20 mls @ 400 mls/hr 07/26/24 09:30 IV 07/26/24 09:32 PREOP [facility] Medical History History of stress test Wears glasses Post-menopausal Non-smoker Breast nodule Abnormal mammogram Thyroid nodule Preventative health care Cervical dysplasia Seasonal allergies Home Medications ?Medication ?Instructions ?Recorded ?Last Taken ?Type NK 06/10/24 Unknown History Allergy/AdvReac Type Severity Reaction Status Date / Time No Known Allergies Allergy Verified 07/24/24 15:02 Family History Mother Lung cancer Father Kidney disease Surgical History S/P ectopic Social History Smoking Status: Never smoker how long ago did patient quit smokin alcohol intake: never substance use type: does not use caffeine: Yes what type of physical activity do you participate in: walking frequency: 1-2 times per week seatbelt use: always do you feel safe at home: Yes additional social history: - Works at a [employer] Review of Systems (Anesthesia) ROS Narrative System reviewed and no additional complaints, except as documented.
--- NOTE | 2024-07-26 07:30 | NM_ITS ---
PROCEDURE: NUCLEAR MEDICINE Injection Odem Node - LEFT breast(s). REASON FOR EXAM: Female, 63 years old. Left breast cancer. TECHNIQUE: Odem node localization using radionuclide methods of the LEFT breast(s) was performed following subcutaneous administration of 1.1 mCi of of sulfur colloid Tc-99m. COMPARISON STUDIES : NM - None. CR - Not available for review at this time. CT - Not available for review at this time. MR - Not available for review at this time. US - Not available for review at this time. FINDINGS: 1.1 mCi of technetium labeled sulfur colloid was injected subcutaneously in the left periareolar region for sentinel node imaging. NM/Lymph Node Injection Only IMPRESSION: 1.1 mCi of technetium labeled sulfur colloid was injected subcutaneously in the left periareolar region for sentinel node imaging. Electronically Signed: Prieto Martin MD at 8:38 EST ,
[2024-07-26] MEDS: Lactated Ringers 1,000 ML 15 ML IV (07:36)
--- NOTE | 2024-07-26 08:44 | PCM.HP.BLA ---
History and Physical Date of Admission: 07/26/24 Date of Service: 07/16/24 MR#: [id number] Acct: [id number] Name: OTONIEL ARZOLA Rep #: [id number] : 1960 Provider: Dr. Marcia David MD Age/Sex: 63/F Location: [facility] Status: Signed Intake Vital Signs 07/05/2414:57 07/16/2412:42 Height 5 ft 3 in 5 ft 3 in Weight: 147 lb 147 lb BMI 26.0 26.0 BP 170/109 H 161/106 H Blood Pressure Location Lt brachial Rt brachial Position Sitting Sitting Respiration 17 18 Pulse 78 75 Pulse Source Monitor Monitor Temp 97.2 F L Temp Source Temporal Pulse Oximetry (%) 97 98 Oxygen Delivery Method room air Intake Visit Reasons: DISCUSS BREAST SURGERY Chief Complaint: discuss breast surgery Accompanied by: son and daughter Is patient in pain?: No Allergies No Known Allergies Allergy (Verified 07/05/24 14:58) Medications ?Medication ?Instructions ?Recorded ?Confirmed ?Type NK 06/10/24 07/16/24 History [facility] Medical History (Updated 07/19/24 @ 09:[address] Marcia David MD) Breast nodule Abnormal mammogram Thyroid nodule Preventative health care Cervical dysplasia Seasonal allergies Surgical History S/P ectopic Family History Mother Lung cancerFather Kidney disease Social History Smoking Status: Former smoker how long ago did patient quit smokin alcohol intake: never substance use type: does not use caffeine: Yes what type of physical activity do you participate in: walking frequency: 1-2 times per week seatbelt use: always do you feel safe at home: Yes additional social history: - Works at a [employer] HPI HPI HPI: 63-year-old female presents to discuss surgical options for left breast cancer accompanied with her son and daughter. Pathology was invasive ductal carcinoma ER/MT positive HER2/shaylee equivocal, nonamplified with FISH. Patient's lesion on ultrasound was 7 mm x 5 mm x 5 mm. ROS General General: No weight change, appetite, fatigue, colon cancer or breast cancer HEENT HEENT: No difficulty swallowing, eye injury, eye surgery, swollen glands or hoarseness Endo Endocrine: No thyroid disease, diabetes mellitus, thyroid cancer, Hair loss, heat intolerance or cold intolerance Skin Skin: No rash or changing moles Breast Breast: Yes abnormal mammogram and abnormal US; No left breast lump, right breast lump, nipple discharge, breast pain or breast enlargement Musc Musculoskeletal: No back problems, arthritis, rheumatoid arthritis, gout or joint pain Cardio Cardiovascular: No murmur, pacemaker, heart disease, atrial fibrillation, high blood pressure, heart attack, heart stent, palpitations, shortness of breat with exertion or chest pain Psych Psychiatric: No depression, anxiety or hearing voices Resp Respiratory: No shortness of breath, No sleep apnea, No cough, No COPD, No asthma, No emphysema and No wheezing Gastro Gastrointestinal: No abdominal pain, No nausea or vomiting, No diarrhea, No constipation, No blood in stool, No acid reflux, No hemorrhoids, No ulcers, No gallbladder problem and No black,tarry stools Rafael Hematologic: No blood thinners, No blood disorders, No bleeding, No anemia and No blood clots Neuro Neurologic: No numbness and No tingling Exam Const General: cooperative, healthy appearing and comfortable Chest Other: Left breast biopsy site healing well, ecchymosis resolving Resp Effort & Inspection: normal respiratory effort Cardio Rate: regular rate Assessment and Plan Assessment and Plan (1) Invasive ductal carcinoma of left breast: Status: Acute Orders: Referrals Oncology D05.10 - Intraductal carcinoma in situ of unspecified breast, N63.0 - Unspecified lump in unspecified breast, N63.20 - Unspecified lump in the left breast, unspecified quadrant Plan I have given the patient options for initial surgical treatment. Options are the following: lumpectomy followed by radiation therapy vs. mastectomy vs. mastectomy followed by immediate reconstruction. I have described the procedures to the patient. I have described the advantages and disadvantages of the options, but I have told the patient that among the options, the survival rate for breast cancer is the same. I have told the patient that with all the surgeries that a sentinel lymph node biopsy is required. I have described the procedure of sentinel lymph node biopsy to the patient. I have told the patient that if the biopsy is positive for metastatic disease, then a full axillary lymph node dissection is required. I have told the patient that adjuvant chemotherapy will be required should the lymph nodes reveal metastatic disease. Also, a full lymph node dissection will increase the risk for lymphedema, especially if there are 4 or more lymph nodes positive for metastatic disease and radiation to the axilla is also required. I have told the patient the risks of surgery, including but not limited to: infection, bleeding, scar tissue, seroma and persistent seroma, lymph leak, injury to any blood vessels, injury to any nerves (particularly the long thoracic, the thoracodorsal, and the second intercostal brachial and the resultant sequelae), lymphedema, cosmetic deformity, dysesthesias, wound infections, further surgery (especially if margins are not clear), complications of anesthesia, etc. the patient understands. Patient is currently leaning towards left ultrasound-guided wire needle localization lumpectomy, sentinel lymph node biopsy with nuclear tracer and blue dye. Patient will meet with radiation oncology prior to her surgery-and let us know what she decides for surgery. I have answered all the patient?s questions at this point to her satisfaction and she has no further questions. Marcia David M.D. Pager: [phone] [facility] [address] [place] [address], [address] [place] [address] Office: [phone] Coding Level of Care Code Off vis,est,level 3 Diagnoses Invasive ductal carcinoma of left breast C50.912 07/19/24 0903 <Electronically signed by Marcia David MD> Date Marcia David MD
[2024-07-26] MEDS: Cefazolin 2 GM in Syringe IV (09:23)
--- NOTE | 2024-07-26 09:30 | LYMN_PTH ---
PATIENT: OTONIEL ARZOLA LOC: [facility] [place] U#:[id number] AGE/SX: 63/F ROOM: RE07/26/[address]: Dr. Marcia David MD : 1960 BED: DIS: 07/26/2024 SPEC #: [id number] RECD: 07/26/24 11:01 STATUS: BENITO REFelipa #: [id number] SEAN: 07/26/24 09:[address]: Marcia David DEPT: SURGICAL PATHOLOGY RECD BY: Dank Chung ENTERED: 07/26/24 11:02 SP TYPE: LYMPH NODE OTHR DR: Dr. David Cavanaugh MD Tissues: LYMPH NODE BIOPSY Procedures: Frozen Section (charge) Surgery Specimen Level IV HEADER OPERATION: Ultrasound guided wire localization, left breast lumpectomy PRE-OP DIAGNOSIS: Invasive ductal carcinoma of left breast TISSUE SUBMITTED: A- [place] lymph nodes, B- Left breast mass * short stitch- superior, long stitch-lateral* FROZEN SECTION DIAGNOSIS A. Left sentinel lymph node, biopsy: Three out of three lymph nodes, negative for metastatic carcinoma. SJ. 07/26/2024 MICROSCOPIC DIAGNOSIS A. Left sentinel lymph nodes, biopsy: Three out of three lymph nodes, negative for carcinoma. See comment. B. Left breast mass, lumpectomy: Invasive ductal carcinoma. See cancer summary below. AM. 07/31/2024 COMMENT A. Immunohistochemistry ([id number]) supports the above diagnosis. B. BREAST CANCER SUMMARY Procedure: Excision with wire guidance Specimen: Type: Partial breast Size: 5.5 x 4.5 x 2.5cm Laterality: Left breast Invasive Tumor: Site: Not specified Size: 1.0 x 0.7 x 0.7cm Focality: Single focus of carcinoma Histologic type: Invasive ductal carcinoma. Histologic grade (Remedios grade): 1 Glandular/tubular differentiation score: 2 Nuclear pleomorphism score: 2 Mitotic count score: 1 Overall grade: 1(score of 5) Lymph vascular invasion: Not identified Ductal Carcinoma In Situ: Present Estimated quantification: 10% Number of blocks: 5 of 10 blocks Architectural pattern: Solid and cribriform Nuclear grade: 1/2/3 Necrosis: Not identified Lobular Carcinoma In Situ: Not present Tumor extension: Skin: Not applicable Nipple: Not applicable Skeletal muscle: Not present Margins Involved by Invasive Carcinoma: Distance from closest margin: 7.0mm from anterior margin Lymph Nodes: Number of sentinel lymph nodes examined: 3 Total number of lymph nodes examined: 3 No evidence of macro metastases, micro metastases or isolated tumor cells Microcalcifications: Present and associated with carcinoma. Treatment Effect: Unknown Additional Pathologic Findings: Change of previous biopsy, atypical intraductal hyperplasia Ancillary Studies: Previously performed on same tumor ([id number]) ER: positive (>95%, strong intensity) AL: positive (77%, weak to moderate intensity) [id number]: 2+ by immunohistochemistry and negative by in situ hybridization Clinical History: Mass of breast PATHOLOGIC STAGE: pT1c N0 Mx The above summary is in compliance with [employer] [place] [employer] (CAP) Cancer Protocol Checklist and [place] Joint Committee on Cancer (AJCC) Staging Manual, 8th Ed. MICROSCOPIC DESCRIPTION Slides are reviewed. GROSS DESCRIPTION A. Received fresh for frozen section diagnosis labeled with the patient's name is a specimen designated Left sentinel lymph node. The specimen consists of a piece of fibroadipose tissue containing nodules measuring 3.5 x 1.5 x 1.0cm. One large lymph node is noted with blue dye discoloration measuring 3.5cm in greatest dimension. One smaller lymph node is also noted measuring 0.3cm in greatest dimension and a third possible lymph node is also noted measuring 0.5cm in greatest dimension. The entire specimen is submitted for frozen section diagnosis as follows: 1&2- each cassette containing one lymph node, 3&4- largest lymph node. B. Received fresh for intraoperative diagnosis labeled with the patient's name is a specimen designated Left breast mass. The specimen consists of a piece of fibroadipose tissue with needle localization measuring 5.5 x 4.5 x 2.5cm. The specimen is oriented as follows: short stitch - superior, long stitch - lateral. The specimen is inked as follows: anterior - yellow, posterior - black, superior - blue, inferior - green, medial - red and lateral - orange. Serial sections reveal a naranjo indurated mass measuring 1.0 x 0.7 x 0.7cm. This mass is 0.7cm away from the closest anterior margin. This information is conveyed to the OR personnel. Section of the rest of the specimen reveal naranjo-yellow adipose cut surfaces with scant fibrous areas. Sections will be submitted after additional fixation. . 07/26/2024 Cassettes will be submitted as follows: 1&2- perpendicular margins, 3-6- lesion with adjacent soft tissue, 7-10- livestock sales representative sections of uninvolved breast parenchyma adjacent to and away from lesion. Sections are submitted after additional fixation. . 07/29/2024 TC:0 CPT:[id number] ADDENDUM ADDENDUM ADDENDUM ADDENDUM ADDENDUM ADDENDUM ADDENDUM ADDENDUM ADDENDUM ADDENDUM 08/19/2024 14:51 ADDENDUM 08/19/2024 14:51 ADDENDUM 08/19/2024 14:51 ADDENDUM 08/19/2024 14:51 ADDENDUM 08/19/2024 14:51 ONCOTYPE DX BREAST RECURRENCE SCORE REPORT RECURRENCE SCORE RESULT : 10 DISTANT RECURRENCE RISK AT 9 YEARS: 3% GROUP AVERAGE ABSOLUTE CHEMOTHERAPY BENEFIT: <1% Please see complete Gen Path Report in the patient's EMR
[2024-07-26] MEDS: 0.9% Normal Saline (Pres. free 10 ML Vial (09:45)
[2024-07-26] MEDS: Isosulfan Blue 1% 5 ML Vial (09:45)
--- NOTE | 2024-07-26 10:37 | BI_ITS ---
SURGICAL BREAST SPECIMEN RADIOGRAPH CLINICAL: Document presence of tissue clip marker in biopsy specimen. FINDINGS: Specimen shows presence of tissue clip marker. Electronically Signed: Prieto Martin MD at 11:38 EST , BI/Breast Biopsy Specimen IMPRESSION: undefined
--- NOTE | 2024-07-26 10:41 | PCM.OPRPT ---
Operative Report (Standard) Operative Information Surgery/Procedure Performed: Ultrasound guided wire localization left lumpectomy, sentinel lymph node biopsy with nuclear tracer and blue dye Surgeon: Marcia David Date of Procedure: 07/26/24 Procedure Start Time: : Procedure Stop Time: :01 Pre-Operative Diagnosis: Left breast cancer Post-Operative Diagnosis: Same Select all DRAINS/GRAFTS/IMPLANTS that apply: None Type of Anesthesia: General/Supplemental Special Medications: Ancef 2 g IV x 1 Estimated Blood Loss: 15 cc Specimen collected: Yes Description of specimen(s) removed: 1. Left axillary sentinel nodes, 2. Left lumpectomy Description of surgery: In AC the breast tissue was injected with TC-9 9 sulfur colloid. >90 minutes later the patient was taken to the operating room and general anesthesia was induced. 5 cc of Lymphazurin 1% blue dye was injected in the 4 quadrants periareolar along with 10 cc of normal saline. This was massaged gently for 5 minutes. The left breast and axilla were prepped and draped in usual sterile fashion. A timeout was completed verifying correct patient, procedure, site, positioning, special equipment prior to beginning procedure. Handheld gamma probe was used to identify the location of the hottest spot in the axilla. Prior to the incision, the counts were 20. The incision was made in the hot and blue nodes were identified. The probe was placed in contact with the node in the 10 count was 3408. The bed of the node measured 15 counts. No additional blue or hot nodes or palpable were detected. Frozen had 3 negative lymph nodes. Ultrasound was use for localization of the breast mass using the BARD needle. The wire was placed just inferiorly to the mass. A curvilinear incision was planned in such a way as to minimize the amount of dissection to reach the mass. Flaps were raised in the location of the wire confirmed. The wire was delivered into the wound. 2 silk flifla-vj-gjelt stay suture was placed around the wire and used for traction. Dissection was then taken down circumferentially, taking care to include the entire localization needle and wide margin of grossly normal tissue. The specimen and entire localizing wire were removed. The specimen was oriented and sent to radiology with the localization studies. Confirmation was received that the entire target lesion had been resected. 3 medium clips were placed in the line at the deep area of the cavity. The cavities were irrigated. Hemostasis was checked. The breast and axillary incisions were closed with interrupted sutures of 3-0 Vicryl and subcuticular sutures of 4-0 Monocryl. No attempt was made to close the space. Steri-Strips were placed on the breast incision and Dermabond on the axillary incision and supportive bra placed. The patient tolerated procedure well was taken to the postanesthesia care in stable condition Surgical Findings: 3 sentinel lymph nodes negative on frozen Ginner Helper intranet specialist: Yes Yarn Mercerizer Operator: Mackenzie Plunkett Tasks completed by wheelchair van operator first responder: Closing and Retracting Complications Complications: No Oncology: Franchesca Requirements . Oncology surgical intervention performed: Sherwood Node Biopsy for Breast Cancer performed Sherwood Node Bx - Breast Cancer: Synoptic Portion: Element Response Options Operation performed with curative intent. Yes Tracer(s) used to identify sentinel nodes in the upfront surgery (non-neoadjuvant) setting (select all that apply). Dye; Radioactive tracer Tracer(s) used to identify sentinel nodes in the neoadjuvant setting (select all that apply).N/A All nodes (colored or non-colored) present at the end of a dye-filled lymphatic channel were removed. Yes All significantly radioactive nodes were removed. Yes All palpably suspicious nodes were removed. N/A. Biopsy-proven positive nodes marked with clips prior to chemotherapy were identified and removed. N/A.
[2024-07-26] MEDS: Bupivacaine 0.25% 30 ML Vial (10:46)
--- NOTE | 2024-07-26 10:47 | DCINST_ITS ---
Discharge Instructions Diet Discharge Diet: No restrictions Activity Discharge Activity: May Not Drive (for 2-3 days or while taking narcotic pain meds.) May shower in (days): 1 Lifting Restrictions: 10 pounds for 1 week. Dressing / Incision Call your doctor if your incision/area has: Continuous Slow Oozing, Sudden Increased Bleeding, Increased Pain/ Swelling and Increased Redness Call your doctor if you observe: Fever of 101 or Higher Suture Line Care: Avoid Pulling/Pushing and Avoid Pinching/Bending Remove Dressing in: 1 day Additional Dressing/Incision Instructions:: Remove bulky dressing tomorrow. May leave op-site dressing for 3-4 days. Dermabond (glue) was used at the axillary incision this may start to peel off in about 5 days. Okay to remove Steri- Strips from the breast incision in 7 to 10 days. Follow Up Care Please Follow Up With: Marcia David MD When: Please call [phone] for an appointment to be seen in 2 week. Test Results: Test results from this visit will be discussed in further detail at your follow- up appointment, if applicable. Discharge Plan Admission Attending Provider: Marcia David Primary Care Provider: David Cavanaugh Instructions Print Language: Spanish Discharge Orders/Prescriptions Prescriptions: New hydrocodone-acetaminophen 5-325 mg tablet 1 tab PO Q6H PRN (Reason: pain) 3 Days Qty: 5 0RF Referrals / Follow Up: David Cavanaugh MD [Primary Care Provider] - Disposition Disposition (needs filled in before D/C Order can be placed): Home, Self Care
--- NOTE | 2024-07-26 11:09 | PCM.POST.ANE ---
Anesthesia: Postop Eval I Current Vital Signs Temperature: 97.4 F Pulse Rate: 93 Blood Pressure: 177/93 Respiratory Rate: 20 Pulse Ox: 99 Assessment Airway patent: Yes Spontaneous unlabored respirations: Yes nausea: No Vomiting: No Anesthesia Complication: No Fluid Hydration Crystalloid volume administer (ml): 1,000 Total IV fluid infused: 1,000 Progress Note Anesthesia document: Postop Eval 1 completed: Yes
[2024-07-26] MEDS: Acetaminophen 325 MG Tablet 650 MG PO (12:25)
--- NOTE | 2024-07-26 13:09 | POSTOPAN2_ITS ---
Anesthesia Postop Eval I Sum Postop Eval Completion status Anesthesia document: Postop Eval 1 completed: Yes Anesthesia Postop Eval I Summary Anesthesia Postop Eval I Summary: Anesthesia Postop Eval I: Assessment Summary Airway patent Yes 07/26/24 11:09 ADMINISTRATIVE SERVICES [email or web address] Spontaneous unlabored Yes 07/26/24 11:09 ADMINISTRATIVE SERVICES [email or web address] respirations Mental status nausea No 07/26/24 11:09 ADMINISTRATIVE SERVICES MANAGER.[email or web address] Vomiting No 07/26/24 11:09 ADMINISTRATIVE SERVICES MANAGER.[email or web address] Anesthesia Postop Eval I: Fluid Summary Crystalloid volume administer 1,000 07/26/24 11:09 ADMINISTRATIVE SERVICES MANAGER.CSIR (ml) Colloids volume administered ( ml) Blood Product volume administered (ml) Total IV fluid infused 1,000 07/26/24 11:09 ADMINISTRATIVE SERVICES MANAGER.[email or web address] Anesthesia Postop Eval I: Summary Notes Anesthesia Complication No 07/26/24 11:09 ADMINISTRATIVE SERVICES MANAGER.CSIR Anesthesia Complication Comment: Post-operative progress note Anesthesia: Postop Eval II Evaluation Mental status: Awake Pain Level: 0 nausea: No Vomiting: No
--- NOTE | 2024-07-26 13:09 | PCM.POSTANE2 ---
Anesthesia Postop Eval I Sum Postop Eval Completion status Anesthesia document: Postop Eval 1 completed: Yes Anesthesia Postop Eval I Summary Anesthesia Postop Eval I Summary: Anesthesia Postop Eval I: Assessment Summary Airway patent Yes 07/26/24 11:09 PUBLICATION [email or web address] Spontaneous unlabored Yes 07/26/24 11:09 PUBLICATION MANAGER.CSIR respirations Mental status nausea No 07/26/24 11:09 PUBLICATION MANAGER.CSIR Vomiting No 07/26/24 11:09 PUBLICATION MANAGER.[email or web address] Anesthesia Postop Eval I: Fluid Summary Crystalloid volume administer 1,000 07/26/24 11:09 PUBLICATION MANAGER.CSIR (ml) Colloids volume administered ( ml) Blood Product volume administered (ml) Total IV fluid infused 1,000 07/26/24 11:09 PUBLICATION MANAGER.CSIR Anesthesia Postop Eval I: Summary Notes Anesthesia Complication No 07/26/24 11:09 PUBLICATION MANAGER.CSIR Anesthesia Complication Comment: Post-operative progress note Anesthesia: Postop Eval II Evaluation Mental status: Awake Pain Level: 0 nausea: No Vomiting: No
== END 2024-07-26 12:49 | disposition home or self-care (01) ==
LOC: SDC 06:59 → AC 07:00
PROVIDERS: PCP Internal Medicine; Referring Provider Surgery; Visit Provider Surgery
PROC: 0HBV0ZZ Excision of Bilateral Breast, Open Approach (ICD-10-PCS; CPT 19302; principal; 2024-07-26 09:15)
DX: C50.912 Malignant neoplasm of unspecified site of left female breast (principal); Z87.891 Personal history of nicotine dependence
CPT/HCPCS: 19302; 38900; 00400; 38792; 76098; 88305; 88331; 88341; 88342; A4648; A9541; J7120; A4216; J2405; J3490; Q9968

== ENCOUNTER → 2024-10-09 | Outpatient (CLI) | payer MEDICARE, SELFPAY ==
[2024-10-09 13:06] LABS: AST(SGOT) 22 U/L (15-37); Alanine Aminotransfer ALT/SGPT 34 U/L (13-56); Albumin, Serum 3.7 g/dL (3.2-5.0); Alkaline Phosphatase 87 U/L (45-117); Anion Gap 6 (5-15); BUN 16 mg/dL (7-18); Calcium,Total 9.5 mg/dL (8.5-10.1); Chloride 109 mmol/L (98-107); Cholesterol 206 mg/dL (200); Creatinine, Serum 0.73 mg/dL (0.55-1.02); EST Glomerular Filtration Rate 85 mL/min (>60); Est Glom Filt Rate - Afr Amer 103 mL/min (>60); Globulin 3.8 g/dL (2.2-4.2); Glucose 99 mg/dL (74-106); High Density Lipoprotein 78 mg/dL; Potassium 4.2 mmol/L (3.5-5.1); Protein, Total 7.5 g/dL (6.4-8.2); Sodium Level 140 mmol/L (136-145); Triglycerides 128 mg/dL; Very Low Density Lipoprotein 26 mg/dL (5-40)
== END | disposition home or self-care (01) ==
PROVIDERS: PCP Internal Medicine; Referring Provider Internal Medicine; Visit Provider Internal Medicine
DX: I10 Essential (primary) hypertension (principal)
CPT/HCPCS: 36415; 80053; 80061

== ENCOUNTER → 2024-10-23 | Outpatient (CLI) | payer MEDICARE, SELFPAY ==
--- NOTE | 2024-10-23 09:40 | BD_ITS ---
PROCEDURE: DEXA BONE DENSITY STUDY REASON FOR EXAM: F, age 64 y/o . Postmenopausal. TECHNIQUE: DEXA scan of the lumbar spine and both hips. COMPARISON: None. FINDINGS: T-SCORES Lumbar spine: 0.781 grams/centimeter sq. T-score measures -2.4 and Z-score measures -0.6 Left hip: Total bone mineral density of left hip measures 0.711 grams/centimeters sq. T-score measures -1.9 and Z-score measures -0.7. Bone mineral density of the left femoral neck measures 0.589 grams/centimeter sq. T-score measures -2.3 and Z-score measures -0.8. Right hip: Total bone mineral density of the right hip measures 0.686 grams/centimeter sq. T-score measures -2.1 and Z-score measures -0.9. Bone mineral density of the right femoral neck measures 0.590 grams/centimeter sq. T-score measures -2.3 and Z-score measures -0.8. Patient demonstrates osteopenia of the lumbar spine and both hips. FRAX* Results: 10 Year Probability of Fracture: Hip Fracture(1): 12% Major Osteoporotic Fracture(2): 2.0% *FRAX is a trademark of the [employer]'s [place] [facility] Metabolic Bone Disease, World Health Organization (WHO) Collaborating [place]. 1-The 10-year probability of fracture may be lower than reported if the patient has received treatment. 2-Major Osteoporotic Fracture: Clinical Spine, Forearm, Hip or Shoulder. The T-scores are also available for review on the [facility] PACS or by accessing the [facility] electronic medical record. BD/Dexa Bone Density Study IMPRESSION: OSTEOPENIA. Reading Location: [id number]
== END | disposition home or self-care (01) ==
PROVIDERS: PCP Internal Medicine; Referring Provider Internal Medicine Hematology & Oncology; Visit Provider Internal Medicine Hematology & Oncology
DX: Z78.0 Asymptomatic menopausal state (principal)
CPT/HCPCS: 77080

== ENCOUNTER → 2025-07-02 | Outpatient (CLI) | payer MEDICARE, SELFPAY ==
--- NOTE | 2025-07-02 09:00 | BI_ITS ---
EXAM: DIAG MAMM W/CAD, BILAT 07/02/2025 CLINICAL HISTORY: F, Age 64 y/o , FOLLOW UP TREATED BREAST CANCER, ANNUAL SCREENING TECHNIQUE: Procedure Code: [id number] Modality: MG Procedure: DIAG MAMM W/CAD, BILAT. COMPARISON: Prior exam(s) dated June 21, 2024.. FINDINGS: TISSUE DENSITY: There are scattered areas of fibroglandular density. Bilateral Breast Mammographic Findings: No significant masses, calcifications or other abnormalities are identified. The patient is status post lumpectomy and radiation in the lateral aspect of the left breast. Postoperative scarring at the biopsy site. No suspicious masses, areas of developing architectural distortion, or suspicious calcifications. There has been no significant interval change. BI/DIAG MAMM W/CAD, BILAT IMPRESSION: Status post lumpectomy in the upper lateral aspect of the left breast. Postope rative scarring. OVERALL FINAL ASSESSMENT BI-RADS 2: BENIGN RECOMMENDATION: Routine annual follow-up in 1 Year Additional Recommendation none A letter with findings and recommendations will be mailed to the patient. Reading Location: [id number]
== END | disposition home or self-care (01) ==
LOC: OPBI 08:56
PROVIDERS: PCP Internal Medicine; Referring Provider Student in an Organized Health Care Education/Training Program; Visit Provider Student in an Organized Health Care Education/Training Program
DX: C50.412 Malignant neoplasm of upper-outer quadrant of left female breast (principal)
CPT/HCPCS: 77062; 77066; G0279